=== PATIENT | male | born 1970 | race Two or more races ===

== ENCOUNTER → 2024-10-16 | Outpatient (CLI) | payer MEDICARE, MEDICAID, SELFPAY ==
--- NOTE | 2024-10-16 09:15 | XR_ITS ---
Examination: Transrectal prostate sonography TECHNIQUE: Grayscale sonographic images transrectal of the prostate Exam date and time: October 16, 2024 0859 hours INDICATIONS: Frequent urination beginning 3 months ago. FINDINGS: Prostate 3.8 x 2.5 x 3.7 cm volume 18.18 cc No prostate nodules IMPRESSION: Normal study
== END | disposition home or self-care (01) ==
PROVIDERS: PCP Physician Assistant; Referring Provider Physician Assistant; Visit Provider Physician Assistant
DX: R35.0 Frequency of micturition (principal)
CPT/HCPCS: 76872

== ENCOUNTER → 2025-05-30 | Outpatient (CLI) | payer MEDICARE, SELFPAY ==
--- NOTE | 2025-05-30 09:01 | XR_ITS ---
Examination: Knee bilateral, 7 views Technique: Knee AP, lateral, oblique each knee total 6 views, bilateral axial knees single view total 7 views Date and time of exam: May 30, 2025 0905 hours INDICATIONS: Bilateral knee pain beginning 6 months ago FINDINGS: Mild osteopenia. Bilateral mild tricompartment osteoarthritis. No fractures No patellar dislocation IMPRESSION: Mild bilateral tricompartment osteoarthritis.
== END | disposition home or self-care (01) ==
PROVIDERS: PCP Physician Assistant; Referring Provider Physician Assistant; Visit Provider Physician Assistant
DX: M17.0 Bilateral primary osteoarthritis of knee (principal)
CPT/HCPCS: 73564